=== PATIENT | female | born 1940 ===

== ENCOUNTER 2018-06-16 11:14 | Inpatient (IN) | payer MEDICARE ==
[2018-06-16] MEDS ORDERED: METHYLPREDNISOLONE PF 125MG/VIAL IVP ONE (12:00)
[2018-06-16] MEDS ORDERED: IPRATROPIUM/ALBUTEROL (0.5MG/3MG) NEB INH ONE (12:03)
[2018-06-16 12:23] LABS: BASO % 0.2 % (0-6); EOS % 0.3 % (0-6); GRAN % 79.4 % (47-80); HEMATOCRIT 38.8 % (35.0-47.0); HEMOGLOBIN 12.4 gm/dl (11.6-16.0); LYMPH % 9.9 % (16-45); MEAN CELL VOLUME 94.4 fl (81-97); MEAN CORPUSCULAR HEMOGLOBIN 30.2 pg (27-33); MEAN PLATELET VOLUME 11.8 fl (7.4-10.4); MONO % 10.2 % (0-9); PLATELET COUNT 234 K/uL (130-400); RED BLOOD COUNT 4.11 M/uL (3.80-5.40); RED CELL DISTRIBUTION WIDTH 13.3 % (11.5-14.5); WHITE BLOOD COUNT W/O DIFF 11.9 K/uL (4.2-12.2)
[2018-06-16 12:32] LABS: BLOOD UREA NITROGEN 15 mg/dL (8-23); CREATININE 0.9 mg/dL (0.5-0.9); EST GLOMERULAR FILTRATION RATE > 60 mL/min
[2018-06-16 12:35] LABS: GLUCOSE,RANDOM 119 mg/dL (74-109)
--- NOTE | 2018-06-16 12:59 | Emergency Department Record ---
History of Present Illness - General Chief Complaint: Shortness of breath Stated Complaint: ISIAH Time Seen by Provider: 06/16/18 11:37 Source: Patient Mode of Arrival: Wheelchair Limitations: No limitations - History of Present Illness Initial Comments: pt has had bronchitis for the last week and has been getting increasingly sob. she states her oxygen was down to 75% at home. she was on home O2 at 1 time but was able to come off it. MD Complaint: Cough, Shortness of breath Onset/Timin -: Days(s) Consistency: Constant Improves With: Nothing Worsens With: Exertion, Lying flat Known History Of: COPD Context: Recent URI Associated Symptoms: Cough Treatments Prior to Arrival: None - Related Data Home Oxygen Therapy: No Allergies Allergy/AdvReac Type Severity Reaction Status Date / Time Androgenic Anabolic Steroid Allergy MUSCLE PAIN Verified 06/16/18 11:31 Travel Screening - Travel/Exposure Within Last 30 Days Have you traveled within the last 30 days?: No Review of Systems Reviewed: No additional complaints except as noted below Constitutional: Reports: As per HPI. Denies: Chills, Fever, Malaise, Night sweats, Weakness, Weight change Eyes: Reports: As per HPI. Denies: Eye discharge, Eye pain, Photophobia, Vision change ENT: Reports: As per HPI. Denies: Congestion, Dental pain, Ear pain, Epistaxis , Hearing loss, Throat pain Respiratory: Reports: As per HPI, Dyspnea. Denies: Cough, Hemoptysis, Stridor, Wheezes Cardiovascular: Reports: As per HPI. Denies: Arrhythmia, Chest pain, Dyspnea on exertion, Edema, Murmurs, Orthopnea, Palpitations, Paroxysmal nocturnal dyspnea, Rheumatic Fever, Syncope Endocrine: Reports: As per HPI. Denies: Fatigue, Heat or cold intolerance, Polydipsia, Polyuria Gastrointestinal: Reports: As per HPI. Denies: Abdominal pain, Constipation, Diarrhea, Hematemesis, Hematochezia, Melena, Nausea, Vomiting Genitourinary: Reports: As per HPI. Denies: Abnormal menses, Discharge, Dyspareunia, Dysuria, Frequency, Hematuria, Incontinence, Retention, Urgency Musculoskeletal: Reports: As per HPI. Denies: Arthralgia, Back pain, Gout, Joint swelling, Myalgia, Neck pain Skin: Reports: As per HPI. Denies: Bruising, Change in color, Change in hair/ nails, Lesions, Pruritus, Rash Neurological: Reports: As per HPI. Denies: Abnormal gait, Confusion, Headache, Numbness, Paresthesias, Seizure, Tingling, Tremors, Vertigo, Weakness Psychiatric: Reports: As per HPI. Denies: Anxiety, Auditory hallucinations, Depression, Homicidal thoughts, Suicidal thoughts, Visual hallucinations Hematological/Lymphatic: Reports: As per HPI. Denies: Anemia, Blood Clots, Easy bleeding, Easy bruising, Swollen glands Past Medical History - SOCIAL HISTORY Smoking Status: Former smoker Alcohol Use: None Drug Use: None - RESPIRATORY Hx Respiratory Disorders: Yes Hx COPD: Yes - CARDIOVASCULAR Hx Cardio Disorders: No - NEURO Hx Neuro Disorders: No - GI Hx GI Disorders: No - Hx Genitourinary Disorders: No - ENDOCRINE Hx Endocrine Disorders: No - MUSCULOSKELETAL Hx Musculoskeletal Disorders: No - PSYCH Hx Psych Problems: No - HEMATOLOGY/ONCOLOGY Hx Hematology/Oncology Disorders: No Family Medical History Any Significant Family History?: No Physical Exam - General General Appearance: Alert, Oriented x3, Cooperative, Mild distress - Head Head exam: Normal inspection - Eye Eye exam: Normal appearance, PERRL, EOMI Pupils: Normal accommodation - ENT ENT exam: Normal exam, Mucous membranes moist, Normal external ear exam, Normal orophraynx Ear exam: Normal external inspection. negative: External canal tenderness Nasal Exam: Normal inspection. negative: Discharge, Sinus tenderness Mouth exam: Normal external inspection, Tongue normal Teeth exam: Normal inspection. negative: Dental caries Throat exam: Normal inspection. negative: Tonsillar erythema, Tonsillar exudate - Neck Neck exam: Normal inspection, Full ROM. negative: Tenderness - Respiratory Respiratory exam: Decreased breath sounds, Respiratory distress - Cardiovascular Cardiovascular Exam: Regular rate, Normal rhythm, Normal heart sounds - GI/Abdominal GI/Abdominal exam: Soft, Normal bowel sounds. negative: Tenderness - Rectal Rectal exam: Deferred - exam: Deferred - Extremities Extremities exam: Normal inspection, Full ROM, Normal capillary refill. negative: Tenderness - Back Back exam: Reports: Normal inspection, Full ROM. Denies: Muscle spasm, Rash noted, Tenderness - Neurological Neurological exam: Alert, CN II-XII intact, Normal gait, Oriented X3 - Psychiatric Psychiatric exam: Normal affect, Normal mood - Skin Skin exam: Dry, Intact, Normal color, Warm Course Vital Signs 06/16/18 06/16/18 11:21 12:05 Pulse Rate 95 H 97 H Respiratory 22 20 Rate Blood Pressure 106/78 Pulse Ox 85 L 95 - Reevaluation(s) Reevaluation #1: 06/16/18 14:38 pt informed to get repeat cxr in 3 wks to assess resolution of pneumonia vs mass Medical Decision Making - Lab Data Result diagrams: 06/16/18 11:30 06/16/18 11:30 Lab Results 06/16/18 06/16/18 06/16/18 Range/Units 11:30 11:30 11:30 WBC 11.9 (4.2-12.2) K/uL RBC 4.11 (3.80-5.40) M/uL Hgb 12.4 (11.6-16.0) gm/dl Hct 38.8 (35.0-47.0) % MCV 94.4 (81-97) fl MCH 30.2 (27-33) pg MCHC 32.0 (32-36) g/dl RDW 13.3 (11.5-14.5) % Plt Count 234 (130-400) K/uL MPV 11.8 H (7.4-10.4) fl Gran % 79.4 (47-80) % Lymphocytes % 9.9 L (16-45) % Monocytes % 10.2 H (0-9) % Eosinophils % 0.3 (0-6) % Basophils % 0.2 (0-6) % Absolute Neutrophils Not Reportable Sodium 137 (136-145) mmol/L Potassium 4.1 (3.4-4.5) mmol/L Chloride 96 L (98-107) mmol/L Carbon Dioxide 25.0 (22-29) mmol/L Anion Gap 16.0 (7-16) BUN 15 (8-23) mg/dL Creatinine 0.9 (0.5-0.9) mg/dL Estimated GFR > 60 mL/min Random Glucose 119 H (74-109) mg/dL Calcium 9.5 (8.8-10.2) mg/dL NT-Pro-B Natriuret Pep 338.50 (<450) pg/mL Disposition Disposition: Admit Clinical Impression: Pneumonia Qualifiers: Pneumonia type: due to unspecified organism Laterality: right Lung location: lower lobe of lung Qualified Code(s): J18.1 - Lobar pneumonia, unspecified organism Disposition: Still a Patient at [facility] Decision to Admit: Admit from ER Decision to Admit Date: 06/16/18 Decision to Admit Time: 14:40 Forms: Patient Portal Access Quality - Quality Measures Quality Measures: N/A - Blood Pressure Screening Does Patient Have Any of the Following: No Blood Pressure Classification: Normal BP Reading Systolic Measurement: 106 Diastolic Measurement: 78 Screening for High Blood Pressure: < Normal BP, F/U Not Required > [[id number]]
[2018-06-16 13:20] LABS: INFLUENZA A NEGATIVE (NEGATIVE); INFLUENZA B NEGATIVE (NEGATIVE)
[2018-06-16] MEDS ORDERED: AZITHROMYCIN 500 MG TABLET PO ONE (14:19)
[2018-06-16] MEDS ORDERED: CEFTRIAXONE SODIUM 1 GM in 0.9 % SODIUM CHLORIDE 100ML 100 ML IVPB ONE (14:19)
[2018-06-16] MEDS ORDERED: ALBUTEROL SULFATE (0.083%) 2.5 MG/3 ML NEB INH PRN (16:13)
[2018-06-16] MEDS: IPRATROPIUM/ALBUTEROL (0.5MG/3MG) NEB INH PRN ×2 (16:56→21:55)
--- NOTE | 2018-06-16 17:54 | History & Physical ---
History of Present Illness - Date of Service Date of Service for History & Physical: 06/16/18 - History of Present Illness Admitting Diagnosis: pneumonia History of Present Illness: PMHx: COPD, HLD C/O SOB x 5 days with non productive cough. Today she checked her pulse ox at home and it was at 76% on RA. She states that she usually runs @ 94% on RA. She denies using oxygen at home and just uses a rescue inhaler and a "stiletto" inhaler. She states that she was previously on prednisone for her COPD but her "lung doctor" took her off of it because it causes significant muscle issues in her and she cannot tolerate it. She states that she recently saw Dr. Shane for sleep issues and he took her off of 1mg clonazepam which she had been on for almost 20 years for anxiety and sleep. She states that he put her on trazodone which kept her up all night. She states that she wants to be put back on her clonazepam. She denies trial of other anxiety medications but states that she cannot take antidepressants becuase " they keep me up at night". She states that the only thing that has worked for her is clonazepam. She states that she is willing to try remeron - she thinks she has not tried it in the past. She tried melatonin several years ago in the past but is unsure of the dose. She states that she had a sleep study in the past which was negative for SULEMA. No other concerns. Vitals: BP 106/58, P 95, RR 22, 85% O2 sat on RA Labs: WNL CXR: per audio recording, opacity noted in the lobe, could represent PNA, malignancy cannot be excluded at this time. Given: azithromycin, rocephin, pt declined steroids. Pt admitted for hypoxemia 2/2 to possible PNA vs. COPD exacerbation. Travel Screening - Travel/Exposure Within Last 30 Days Have you traveled within the last 30 days?: No - Travel/Exposure Within Last Year Have you traveled outside the [place] in the last year?: No - Additonal Travel Details Have you been exposed to anyone with a communicable illness?: No - Travel Symptoms Symptom Screening: None Review of Systems Constitutional: Reports: As per HPI. Denies: Chills, Fever, Malaise, Night sweats, Weakness, Weight change Eyes: Reports: As per HPI. Denies: Eye discharge, Eye pain, Photophobia, Vision change ENT: Reports: As per HPI. Denies: Congestion, Dental pain, Ear pain, Epistaxis , Hearing loss, Throat pain Respiratory: Reports: As per HPI, Cough, Dyspnea, Wheezes. Denies: Hemoptysis, Stridor Cardiovascular: Reports: As per HPI. Denies: Arrhythmia, Chest pain, Dyspnea on exertion, Edema, Murmurs, Orthopnea, Palpitations, Paroxysmal nocturnal dyspnea, Rheumatic Fever, Syncope Endocrine: Reports: As per HPI. Denies: Fatigue, Heat or cold intolerance, Polydipsia, Polyuria Gastrointestinal: Reports: As per HPI. Denies: Abdominal pain, Constipation, Diarrhea, Hematemesis, Hematochezia, Melena, Nausea, Vomiting Genitourinary: Reports: As per HPI. Denies: Abnormal menses, Discharge, Dyspareunia, Dysuria, Frequency, Hematuria, Incontinence, Retention, Urgency Musculoskeletal: Reports: As per HPI. Denies: Arthralgia, Back pain, Gout, Joint swelling, Myalgia, Neck pain Skin: Reports: As per HPI. Denies: Bruising, Change in color, Change in hair/ nails, Lesions, Pruritus, Rash Neurological: Reports: As per HPI. Denies: Abnormal gait, Confusion, Headache, Numbness, Paresthesias, Seizure, Tingling, Tremors, Vertigo, Weakness Psychiatric: Reports: As per HPI. Denies: Anxiety, Auditory hallucinations, Depression, Homicidal thoughts, Suicidal thoughts, Visual hallucinations Hematological/Lymphatic: Reports: As per HPI. Denies: Anemia, Blood Clots, Easy bleeding, Easy bruising, Swollen glands Past Medical History - SOCIAL HISTORY Smoking Status: Former smoker - RESPIRATORY Hx Respiratory Disorders: Yes Hx COPD: Yes - CARDIOVASCULAR Hx Cardio Disorders: No - NEURO Hx Neuro Disorders: No - GI Hx GI Disorders: No - Hx Genitourinary Disorders: No - ENDOCRINE Hx Endocrine Disorders: No - MUSCULOSKELETAL Hx Musculoskeletal Disorders: No - PSYCH Hx Psych Problems: Yes Hx Anxiety: Yes - HEMATOLOGY/ONCOLOGY Hx Hematology/Oncology Disorders: No Family Medical History Any Significant Family History?: No H&P Meds/Allergies - Allergies Allergies: Allergies Allergy/AdvReac Type Severity Reaction Status Date / Time Androgenic Anabolic Steroid Allergy MUSCLE PAIN Verified 06/16/18 11:31 - Active Medications Active Medications: Current Medications Acetaminophen (Tylenol 500mg Tab) 1,000 mg PO Q6H PRN PRN Reason: PAIN - MILD(1-4)/FEVER Albuterol Sulfate () 2.5 mg INH RESP.Q2H PRN PRN Reason: DIFFICULTY IN BREATHING Albuterol/Ipratropium (Duoneb) 3 ml INH RESP.Q6H PRN PRN Reason: WHEEZING Last Admin: 06/16/18 16:56 Dose: 3 ml Azithromycin (Zithromax) 500 mg PO DAILY [facility] Diphenhydramine HCl (Benadryl Capsule) 50 mg PO QHS PRN PRN Reason: INSOMNIA Enoxaparin Sodium (Lovenox) 40 mg SQ DAILY [facility] CEFTRIAXONE 1GM/50ML BAG (Ceftriaxone 1 Gm-D5w Bag) 1 gm in 50 mls @ 100 mls/ hr IVPB Q24H [facility] Potassium Chloride/Sodium Chloride ( Potassium Chl 20meq/) 20 meq in 1,000 mls @ 125 mls/hr IV Q8H [facility] Melatonin (Melatonin) 10 mg PO QHS [facility] Mirtazapine (Remeron) 15 mg PO QHS [facility] Simvastatin (Zocor) 20 mg PO QHS [facility] Physical Exam - Vital Signs Vital Signs: Vital Signs - Last 24 Hrs Temp Pulse Pulse Resp BP BP Pulse Ox 06/16/18 16:56 86 18 96 06/16/18 16:28 20 06/16/18 16:13 98.0 F 79 16 111/71 94 L 06/16/18 15:34 86 24 100/69 95 06/16/18 14:06 90 16 100/80 95 06/16/18 12:05 97 H 20 95 06/16/18 11:21 95 H 22 106/78 85 L - General General Appearance: Alert, Oriented x3, Cooperative, No acute distress Limitations: No limitations - Head Head exam: Normal inspection - Eye Eye exam: Normal appearance, PERRL Pupils: Normal accommodation - ENT ENT exam: Normal exam, Mucous membranes moist, Normal external ear exam, Normal orophraynx Ear exam: Normal external inspection. negative: External canal tenderness Nasal Exam: Normal inspection. negative: Discharge, Sinus tenderness Mouth exam: Normal external inspection, Tongue normal Teeth exam: Normal inspection. negative: Dental caries Throat exam: Normal inspection. negative: Tonsillar erythema, Tonsillar exudate - Neck Neck exam: Normal inspection, Full ROM. negative: Tenderness - Respiratory Respiratory exam: Decreased breath sounds, Wheezes (bilateral bases) - Cardiovascular Cardiovascular Exam: Regular rate, Normal rhythm, Normal heart sounds - GI/Abdominal GI/Abdominal exam: Soft, Normal bowel sounds. negative: Tenderness - Rectal Rectal exam: Deferred - exam: Deferred - Extremities Extremities exam: Normal inspection, Full ROM, Normal capillary refill. negative: Tenderness - Neurological Neurological exam: Alert, Oriented X3 - Psychiatric Psychiatric exam: Normal affect, Normal mood - Skin Skin exam: Dry, Intact, Normal color, Warm Results - Labs Result Diagrams: 06/16/18 11:30 06/16/18 11:30 Labs Last 24 Hours: Laboratory Results - last 24 hr 06/16/18 06/16/18 06/16/18 11:30 11:30 11:30 WBC 11.9 RBC 4.11 Hgb 12.4 Hct 38.8 MCV 94.4 MCH 30.2 MCHC 32.0 RDW 13.3 Plt Count 234 MPV 11.8 H Gran % 79.4 Lymphocytes % 9.9 L Monocytes % 10.2 H Eosinophils % 0.3 Basophils % 0.2 Absolute Neutrophils Not Reportable Sodium 137 Potassium 4.1 Chloride 96 L Carbon Dioxide 25.0 Anion Gap 16.0 BUN 15 Creatinine 0.9 Estimated GFR > 60 Random Glucose 119 H Calcium 9.5 NT-Pro-B Natriuret Pep 338.50 Influenza Type A Ag Influenza Type B Ag 06/16/18 13:00 WBC RBC Hgb Hct MCV MCH MCHC RDW Plt Count MPV Gran % Lymphocytes % Monocytes % Eosinophils % Basophils % Absolute Neutrophils Sodium Potassium Chloride Carbon Dioxide Anion Gap BUN Creatinine Estimated GFR Random Glucose Calcium NT-Pro-B Natriuret Pep Influenza Type A Ag Negative Influenza Type B Ag Negative VTE H&P Assessment - Risk for VTE Risk for VTE: Yes Risk Level: High Risk Assessment Date: 06/16/18 (Caprini risk 5, high risk) Risk Assessment Time: 18:03 VTE Orders Placed or Will Be Placed: Yes Plan - Inpatient Certification Inpatient Certification: Admit to inpatient care: Based on my medical assessment, after consideration of patient's risk factors (age, co-morbidities and patient presenting symptoms and acuity), I expect that this patient will remain in the hospital greater than or equal to two midnights and that the services needed warrant inpatient care because: Patient Risk Factors: [age, h/x of COPD (comorbidities), possible fast decline.] Estimated length of stay: [3 days] The patient may reasonably be expected to be discharged or transferred to a hospital within 96 hours after admission to [facility]. Services needed: [IV meds and fluids, O2] Post hospital care (if known): [possible O2 need] I certify that my determination is in accordance with my understanding of Medicare requirements for reasonable and necessary inpatient services. 06/16/18 18:11 - Detailed Diagnosis and Plan (1) Pneumonia Current Visit: Yes Status: Acute Qualifiers: Pneumonia type: due to unspecified organism Laterality: right Lung location: lower lobe of lung Qualified Code(s): J18.1 - Lobar pneumonia, unspecified organism Base Code: J18.9 - PNEUMONIA, UNSPECIFIED ORGANISM Priority: High Comment: - CXR shows possible infiltrate, will need rpt XR 3 weeks outpt for clearing to rule out malignancy. - Rpt CXR tomorrow to see any progression. - Rocephin and azithro prescribed for coverage of CAP. - No steroids given reaction pt has had in the past. - Maintenance IV fluids 125/hr. - Oxygen as needed. - duoneb and albuterol PRN per resp - Home inhaler as prescribed. (2) Insomnia Current Visit: Yes Status: Chronic Qualifiers: Insomnia type: psychophysiologic Qualified Code(s): F51.04 - Psychophysiologic insomnia Base Code: G47.00 - INSOMNIA, UNSPECIFIED Priority: Medium Comment: - Will try 15mg remeron tonight at 8 PM with 10mg melatonin. - If still not sleeping in 2 hours benadryl 50mg prescribed PRN sleep. - Refraining from benzo's for sleep. Counseled pt regarding this and risks of use. (3) HLD (hyperlipidemia) Current Visit: Yes Status: Acute Base Code: E78.5 - HYPERLIPIDEMIA, UNSPECIFIED Priority: Low Comment: - Continue home meds as prescribed. (4) DVT prophylaxis Current Visit: Yes Status: Acute Base Code: [id number] - Priority: High Comment: - High risk with caprini score. - 40mg subQ daily. GFR wnl as well as Cr. - Disposition Home pending improvement
[2018-06-16] MEDS: POTASSIUM CHL 20MEQ IN 1L NS 20 MEQ/1,000 ML BAG IV SCH (18:06)
[2018-06-16] MEDS: MIRTAZAPINE 15 MG TABLET PO SCH ×2 (20:44→22:17)
[2018-06-16] MEDS: MELATONIN 5 MG TABLET PO SCH ×2 (20:44→22:17)
[2018-06-16] MEDS ORDERED: DIPHENHYDRAMINE HCL 25 MG CAPSULE PO PRN (22:00)
[2018-06-16] MEDS: BENZONATATE 100 MG CAPSULE PO PRN (22:15)
[2018-06-16] MEDS: SIMVASTATIN 20 MG TABLET PO SCH (22:17)
[2018-06-17] MEDS: ACETAMINOPHEN 500 MG TABLET PO PRN ×2 (01:54→14:02)
[2018-06-17] MEDS: POTASSIUM CHL 20MEQ IN 1L NS 20 MEQ/1,000 ML BAG IV SCH ×2 (01:58→09:47)
[2018-06-17 07:10] LABS: BASO % 0.2 % (0-6); EOS % 0.7 % (0-6); GRAN % 76.4 % (47-80); HEMATOCRIT 33.8 % (35.0-47.0); HEMOGLOBIN 10.5 gm/dl (11.6-16.0); LYMPH % 12.8 % (16-45); MEAN CELL VOLUME 96.3 fl (81-97); MEAN CORPUSCULAR HEMOGLOBIN 29.9 pg (27-33); MEAN CORPUSCULAR HGB CONC 31.1 g/dl (32-36); MEAN PLATELET VOLUME 11.6 fl (7.4-10.4); MONO % 9.9 % (0-9); PLATELET COUNT 223 K/uL (130-400); RED BLOOD COUNT 3.51 M/uL (3.80-5.40); RED CELL DISTRIBUTION WIDTH 13.6 % (11.5-14.5); WHITE BLOOD COUNT W/O DIFF 10.3 K/uL (4.2-12.2)
[2018-06-17 07:33] LABS: BLOOD UREA NITROGEN 14 mg/dL (8-23); CREATININE 0.9 mg/dL (0.5-0.9); EST GLOMERULAR FILTRATION RATE > 60 mL/min; GLUCOSE,RANDOM 116 mg/dL (74-109)
--- NOTE | 2018-06-17 07:59 | RADIOLOGY REPORT ---
EXAM: CHEST, TWO VIEWS HISTORY: DIFFICULTY BREATHING. TECHNIQUE: Frontal and lateral views of the chest were performed. FINDINGS: The heart size is normal. The lungs are hyperinflated. There is a right lower lobe opacity. No pleural effusion. The osseous structures are normal. IMPRESSION: INDETERMINATE RIGHT LOWER LOBE OPACITY. FINDINGS MAY BE RELATED TO PNEUMONIA. UNDERLYING NEOPLASM NOT EXCLUDED. JOB NUMBER: [id number] MTDD
[2018-06-17] MEDS: ENOXAPARIN 40 MG/0.4 ML SYR SQ SCH (09:50)
[2018-06-17] MEDS: AZITHROMYCIN 250 MG TABLET PO SCH (09:50)
[2018-06-17] MEDS: BENZONATATE 100 MG CAPSULE PO PRN ×2 (09:51→20:16)
[2018-06-17] MEDS ORDERED: AZITHROMYCIN 500 MG TABLET PO SCH (10:00)
[2018-06-17] MEDS: ANORO (UMECLIDINIUM & VILANTEROL) 62.5MCG/25MCG INH IH SCH (10:20)
[2018-06-17] MEDS: IPRATROPIUM/ALBUTEROL (0.5MG/3MG) NEB INH PRN (10:20)
--- NOTE | 2018-06-17 10:31 | Physician Progress Note ---
Subjective - Date Date of Physician Progress Note: 06/17/18 - Subjective Subjective Comment: Pt states that she thought the remeron, benadryl, melatonin combo helped just as much as the clonazepam. She states that she slept well last night. Feels less SOB this morning. Feels little better than yesterday. Still requiring 2L O2. No other concerns/complaints today. Objective - Vital Signs Vital Signs: Vital Signs - Last 24 Hrs Temp Pulse Pulse Pulse Resp BP BP 06/17/18 08:12 97.8 F 79 16 134/53 06/17/18 07:45 80 16 06/17/18 05:00 98.6 F 73 20 132/55 06/16/18 21:58 81 18 06/16/18 20:00 98.8 F 83 20 113/54 06/16/18 17:00 97.3 F L 88 16 67/52 06/16/18 16:56 86 18 06/16/18 16:28 20 06/16/18 16:13 98.0 F 79 16 111/71 06/16/18 15:34 86 24 100/69 06/16/18 14:06 90 16 100/80 06/16/18 12:05 97 H 20 06/16/18 11:21 95 H 22 106/78 Pulse Ox 06/17/18 08:12 93 L 06/17/18 07:45 06/17/18 05:00 95 06/16/18 21:58 95 06/16/18 20:00 97 06/16/18 17:00 92 L 06/16/18 16:56 96 06/16/18 16:28 06/16/18 16:13 94 L 06/16/18 15:34 95 06/16/18 14:06 95 06/16/18 12:05 95 06/16/18 11:21 85 L - General General Appearance: Alert, Oriented x3, Cooperative, No acute distress Limitations: No limitations - Head Head exam: Normal inspection - Eye Eye exam: Normal appearance, PERRL Pupils: Normal accommodation - ENT ENT exam: Normal exam, Mucous membranes moist, Normal external ear exam Ear exam: Normal external inspection. negative: External canal tenderness Nasal Exam: negative: Discharge, Sinus tenderness - Neck Neck exam: Normal inspection, Full ROM. negative: Tenderness - Respiratory Respiratory exam: Normal lung sounds bilaterally - Cardiovascular Cardiovascular Exam: Regular rate, Normal rhythm, Normal heart sounds - GI/Abdominal GI/Abdominal exam: Soft, Normal bowel sounds. negative: Tenderness - Rectal Rectal exam: Deferred - exam: Deferred - Extremities Extremities exam: Normal inspection, Full ROM, Normal capillary refill. negative: Tenderness - Back Back exam: Reports: Normal inspection, Full ROM. Denies: Muscle spasm, Rash noted, Tenderness - Neurological Neurological exam: Alert, Oriented X3 - Psychiatric Psychiatric exam: Normal affect, Normal mood - Skin Skin exam: Dry, Intact, Normal color, Warm Assessment and Plan - Assessment and Plan (1) Pneumonia Current Visit: Yes Status: Acute Qualifiers: Pneumonia type: due to unspecified organism Laterality: right Lung location: lower lobe of lung Qualified Code(s): J18.1 - Lobar pneumonia, unspecified organism Base Code: J18.9 - PNEUMONIA, UNSPECIFIED ORGANISM Priority: High Comment: - CXR shows possible infiltrate, will need rpt XR 3 weeks outpt for clearing to rule out malignancy. - Rpt CXR pending for today - Rocephin and azithro prescribed for coverage of CAP. - No steroids given reaction pt has had in the past. - Oxygen as needed. - duoneb and albuterol PRN per resp - Home inhaler as prescribed. - nurse noted dark urine this AM, UA ordered with cx if indicated. (2) Insomnia Current Visit: Yes Status: Chronic Qualifiers: Insomnia type: psychophysiologic Qualified Code(s): F51.04 - Psychophysiologic insomnia Base Code: G47.00 - INSOMNIA, UNSPECIFIED Priority: Medium Comment: - Will try 15mg remeron tonight at 8 PM with 10mg melatonin. - If still not sleeping in 2 hours benadryl 50mg prescribed PRN sleep. - Refraining from benzo's for sleep. Counseled pt regarding this and risks of use. (3) HLD (hyperlipidemia) Current Visit: Yes Status: Acute Base Code: E78.5 - HYPERLIPIDEMIA, UNSPECIFIED Priority: Low Comment: - Continue home meds as prescribed. (4) DVT prophylaxis Current Visit: Yes Status: Acute Base Code: [id number] - Priority: High Comment: - High risk with caprini score. - 40mg subQ daily. GFR wnl as well as Cr. - Disposition Disposition: Home pending improvement Results - Labs Result Diagrams: 06/17/18 06:13 06/17/18 06:12 Labs Last 24 Hours: Laboratory Results - last 24 hr 06/16/18 06/16/18 06/16/18 11:30 11:30 11:30 WBC 11.9 RBC 4.11 Hgb 12.4 Hct 38.8 MCV 94.4 MCH 30.2 MCHC 32.0 RDW 13.3 Plt Count 234 MPV 11.8 H Gran % 79.4 Lymphocytes % 9.9 L Monocytes % 10.2 H Eosinophils % 0.3 Basophils % 0.2 Absolute Neutrophils Not Reportable Sodium 137 Potassium 4.1 Chloride 96 L Carbon Dioxide 25.0 Anion Gap 16.0 BUN 15 Creatinine 0.9 Estimated GFR > 60 Random Glucose 119 H Calcium 9.5 NT-Pro-B Natriuret Pep 338.50 Influenza Type A Ag Influenza Type B Ag 06/16/18 06/17/18 06/17/18 13:00 06:12 06:13 WBC 10.3 RBC 3.51 L Hgb 10.5 L Hct 33.8 L MCV 96.3 MCH 29.9 MCHC 31.1 L RDW 13.6 Plt Count 223 MPV 11.6 H Gran % 76.4 Lymphocytes % 12.8 L Monocytes % 9.9 H Eosinophils % 0.7 Basophils % 0.2 Absolute Neutrophils Sodium 142 Potassium 4.5 Chloride 106 Carbon Dioxide 26.0 Anion Gap 10.0 BUN 14 Creatinine 0.9 Estimated GFR > 60 Random Glucose 116 H Calcium 8.8 NT-Pro-B Natriuret Pep Influenza Type A Ag Negative Influenza Type B Ag Negative DVT/PE Assessment - Risk for VTE Risk for VTE: No Risk Level: High Risk Assessment Date: 06/16/18 (Caprini risk 5, high risk) Risk Assessment Time: 18:03 VTE Orders Placed or Will Be Placed: Yes - Active Medicaitons Current Medications: Current Medications Acetaminophen (Tylenol 500mg Tab) 1,000 mg PO Q6H PRN PRN Reason: PAIN - MILD(1-4)/FEVER Last Admin: 06/17/18 01:54 Dose: 1,000 mg Albuterol Sulfate () 2.5 mg INH RESP.Q2H PRN PRN Reason: DIFFICULTY IN BREATHING Albuterol/Ipratropium (Duoneb) 3 ml INH RESP.Q6H PRN PRN Reason: WHEEZING Last Admin: 06/17/18 10:20 Dose: 3 ml Azithromycin (Zithromax) 250 mg PO DAILY [facility] Last Admin: 06/17/18 09:50 Dose: 250 mg Benzonatate (Tessalon) 200 mg PO TID PRN PRN Reason: COUGH Last Admin: 06/17/18 09:51 Dose: 200 mg Diphenhydramine HCl (Benadryl Capsule) 50 mg PO QHS PRN PRN Reason: INSOMNIA Last Admin: 06/16/18 22:16 Dose: 50 mg Enoxaparin Sodium (Lovenox) 40 mg SQ DAILY [facility] Last Admin: 06/17/18 09:50 Dose: 40 mg CEFTRIAXONE 1GM/50ML BAG (Ceftriaxone 1 Gm-D5w Bag) 1 gm in 50 mls @ 100 mls/ hr IVPB Q24H [facility] Melatonin (Melatonin) 10 mg PO QHS [facility] Last Admin: 06/16/18 22:17 Dose: Not Given Mirtazapine (Remeron) 15 mg PO QHS [facility] Last Admin: 06/16/18 22:17 Dose: Not Given Simvastatin (Zocor) 20 mg PO QHS [facility] Last Admin: 06/16/18 22:17 Dose: 20 mg AMI Plan - Labs Result Diagrams: 06/17/18 06:13 06/17/18 06:12
[2018-06-17] MEDS ORDERED: DIPHENHYDRAMINE HCL 25 MG CAPSULE PO PRN (10:52)
[2018-06-17] MEDS: CEFTRIAXONE 1GM/50ML BAG 1 GM/50 ML BAG IVPB SCH (13:58)
[2018-06-17] MEDS ORDERED: MELATONIN 5 MG TABLET PO SCH (20:00)
[2018-06-17] MEDS ORDERED: MIRTAZAPINE 15 MG TABLET PO SCH ×2 (20:00→22:00)
[2018-06-17] MEDS: SIMVASTATIN 20 MG TABLET PO SCH (21:24)
[2018-06-18] MEDS: ACETAMINOPHEN 500 MG TABLET PO PRN (00:15)
[2018-06-18 06:51] LABS: BASO % 0.3 % (0-6); EOS % 2.1 % (0-6); GRAN % 75.5 % (47-80); HEMATOCRIT 34.6 % (35.0-47.0); HEMOGLOBIN 10.7 gm/dl (11.6-16.0); LYMPH % 12.8 % (16-45); MEAN CELL VOLUME 96.6 fl (81-97); MEAN CORPUSCULAR HGB CONC 30.9 g/dl (32-36); MEAN PLATELET VOLUME 11.2 fl (7.4-10.4); MONO % 9.3 % (0-9); PLATELET COUNT 244 K/uL (130-400); RED BLOOD COUNT 3.58 M/uL (3.80-5.40); RED CELL DISTRIBUTION WIDTH 13.7 % (11.5-14.5); WHITE BLOOD COUNT W/O DIFF 10.9 K/uL (4.2-12.2)
[2018-06-18 06:52] LABS: MEAN CORPUSCULAR HEMOGLOBIN 29.8 pg (27-33)
[2018-06-18 07:11] LABS: BLOOD UREA NITROGEN 11 mg/dL (8-23); CREATININE 0.8 mg/dL (0.5-0.9); EST GLOMERULAR FILTRATION RATE > 60 mL/min; GLUCOSE,RANDOM 108 mg/dL (74-109)
--- NOTE | 2018-06-18 07:20 | RADIOLOGY REPORT ---
EXAM: CHEST, TWO VIEWS HISTORY: COUGH AND SHORTNESS OF BREATH FOR THREE DAYS. TECHNIQUE: Two views of the chest were obtained. Comparison: Chest radiograph 06/16/18. FINDINGS: The cardiac silhouette is within normal size limits. Thoracic aortic calcifications are noted. Patchy consolidation in the region of the right lower lobe, overall similar from prior study. No new focal pulmonary opacities. No definable pleural fluid collection or visible pneumothorax. The lungs appear hyperinflated. Incidental note of right proximal humerus deformity status post internal fixation, partially seen. IMPRESSION: 1. PERSISTENT RIGHT LOWER LOBE CONSOLIDATION, SUSPICIOUS FOR PNEUMONIA. RECOMMEND CONTINUED RADIOGRAPHIC FOLLOW-UP UNTIL RESOLUTION. 2. THE LUNGS APPEAR HYPERINFLATED WHICH MAY BE SEEN IN COPD. JOB NUMBER: [id number] MTDD
[2018-06-18 07:50] LABS: URINE APPEARANCE CLEAR; URINE BILIRUBIN NEGATIVE (NEGATIVE); URINE BLOOD NEGATIVE (NEGATIVE); URINE COLOR YELLOW; URINE GLUCOSE (UA) NEGATIVE (NEGATIVE); URINE KETONE TRACE (NEGATIVE); URINE LEUKOCYTE ESTERASE NEGATIVE (NEGATIVE); URINE NITRITE NEGATIVE (NEGATIVE); URINE PROTEIN NEGATIVE (NEGATIVE)
[2018-06-18] MEDS ORDERED: 0.9 % SODIUM CHLORIDE 1000ML 1,000 ML IV ONE (07:55)
[2018-06-18] MEDS: ANORO (UMECLIDINIUM & VILANTEROL) 62.5MCG/25MCG INH IH SCH (09:32)
--- NOTE | 2018-06-18 10:26 | Discharge Summary ---
Providers Discharge Summary Date: 06/18/18 Date of admission: 06/16/18 15:30 Expected Date of Discharge: 06/18/18 Attending physician: JESSICA SHANE Primary care physician: DEBBIE ARREAGA M.D. Physical Exam - Vital Signs Vital Signs: Vital Signs - Last 24 Hrs Temp Pulse Pulse Pulse Resp BP BP 06/18/18 09:43 90 24 06/18/18 09:20 92 H 24 06/18/18 09:00 90 22 06/18/18 08:06 98/78 06/18/18 07:41 97.5 F L 90 22 87/60 06/18/18 05:37 70 16 06/17/18 21:29 98.1 F 81 20 126/63 06/17/18 18:05 97.5 F L 81 16 104/55 06/17/18 15:14 98.0 F 88 20 132/60 06/17/18 14:00 06/17/18 10:20 79 16 Pulse Ox 06/18/18 09:43 94 L 06/18/18 09:20 94 L 06/18/18 09:00 06/18/18 08:06 06/18/18 07:41 92 L 06/18/18 05:37 96 06/17/18 21:29 93 L 06/17/18 18:05 94 L 06/17/18 15:14 93 L 06/17/18 14:00 94 L 06/17/18 10:20 96 - General General Appearance: Alert, Oriented x3, Cooperative, No acute distress Limitations: No limitations - Head Head exam: Normal inspection - Eye Eye exam: Normal appearance, PERRL Pupils: Normal accommodation - ENT ENT exam: Normal exam, Mucous membranes moist, Normal external ear exam Ear exam: Normal external inspection. negative: External canal tenderness Nasal Exam: negative: Discharge, Sinus tenderness Mouth exam: Normal external inspection, Tongue normal Teeth exam: Normal inspection. negative: Dental caries Throat exam: Normal inspection. negative: Tonsillar erythema, Tonsillar exudate - Neck Neck exam: Normal inspection, Full ROM. negative: Tenderness - Respiratory Respiratory exam: Normal lung sounds bilaterally - Cardiovascular Cardiovascular Exam: Regular rate, Normal rhythm, Normal heart sounds - GI/Abdominal GI/Abdominal exam: Soft, Normal bowel sounds. negative: Tenderness - Rectal Rectal exam: Deferred - exam: Deferred - Extremities Extremities exam: Normal inspection, Full ROM, Normal capillary refill. negative: Tenderness - Back Back exam: Reports: Normal inspection, Full ROM. Denies: Muscle spasm, Rash noted, Tenderness - Neurological Neurological exam: Alert, Oriented X3 - Psychiatric Psychiatric exam: Normal affect, Normal mood - Skin Skin exam: Dry, Intact, Normal color, Warm Hospitalization - Hospitalization Admission Diagnosis: pneumonia - Problem List/Discharge Diagnosis (1) Pneumonia Current Visit: Yes Status: Acute Discharge Diagnosis: Pneumonia type: due to unspecified organism Laterality: right Lung location: lower lobe of lung Qualified Code(s): J18.1 - Lobar pneumonia, unspecified organism Base Code: J18.9 - PNEUMONIA, UNSPECIFIED ORGANISM Comment: - doing well, will D/C home today with O2. - Will continue azithromycin and cefdinir outpt. - Bolus given to help hydrate given ketones in urine and dry mouth. - Otherwise pt states that she feels 90% better. - Will rpt CXR in 3 weeks to monitor for clearing and rule out malignancy. (2) Insomnia Current Visit: Yes Status: Chronic Discharge Diagnosis: Insomnia type: psychophysiologic Qualified Code(s): F51.04 - Psychophysiologic insomnia Base Code: G47.00 - INSOMNIA, UNSPECIFIED Comment: - Pt liked the 15mg remeron with 10mg melatonin and 50mg benadryl combo for sleep. - Will prescribe outpt. (3) HLD (hyperlipidemia) Current Visit: Yes Status: Acute Base Code: E78.5 - HYPERLIPIDEMIA, UNSPECIFIED Comment: - Continue home meds as prescribed. (4) DVT prophylaxis Current Visit: Yes Status: Acute Base Code: [id number] - Comment: - High risk with caprini score. - 40mg subQ daily. GFR wnl as well as Cr. - Disposition Home today - Hospitalization Course Hospital Course: PMHx: COPD, HLD ED course: C/O SOB x 5 days with non productive cough. Today she checked her pulse ox at home and it was at 76% on RA. She states that she usually runs @ 94% on RA. She denies using oxygen at home and just uses a rescue inhaler and a "stiletto" inhaler. She states that she was previously on prednisone for her COPD but her "lung doctor" took her off of it because it causes significant muscle issues in her and she cannot tolerate it. She states that she recently saw Dr. Shane for sleep issues and he took her off of 1mg clonazepam which she had been on for almost 20 years for anxiety and sleep. She states that he put her on trazodone which kept her up all night. She states that she wants to be put back on her clonazepam. She denies trial of other anxiety medications but states that she cannot take antidepressants becuase " they keep me up at night". She states that the only thing that has worked for her is clonazepam. She states that she is willing to try remeron - she thinks she has not tried it in the past. She tried melatonin several years ago in the past but is unsure of the dose. She states that she had a sleep study in the past which was negative for SULEMA. No other concerns. Vitals: BP 106/58, P 95, RR 22, 85% O2 sat on RA Labs: WNL CXR: per audio recording, opacity noted in the lobe, could represent PNA, malignancy cannot be excluded at this time. Given: azithromycin, rocephin, pt declined steroids. Pt admitted for hypoxemia 2/2 to possible PNA vs. COPD exacerbation. Hospital course: over two days the pt's symptoms of SOB and wheezing significantly improved with O2 and 2L NC, rocephin and azithromycin daily, and breathing treatments. She feels roughly 90% better today. For sleep remeron 15mg, melatonin 10mg, and benadryl 50mg worked well for her and she did not have any side effects. She will need home oxygen and will need to increase oxygen when ambulating to prevent desaturations. WBC continued to stay in normal range. F/u with me in 2 weeks scheduled. Procedures: Imaging and X-Rays 06/16/18 11:59 CXR [CHEST 2 VIEWS] [RAD] Stat 06/17/18 08:00 CXR [CHEST 2 VIEWS] [RAD] Stat Cardiology Procedures 06/16/18 12:03 EKG NOW Abnormal Labs: Abnormal Lab Results 06/16/18 06/16/18 06/17/18 Range/Units 11:30 11:30 06:12 RBC (3.80-5.40) M/uL Hgb (11.6-16.0) gm/dl Hct (35.0-47.0) % MCHC (32-36) g/dl MPV 11.8 H (7.4-10.4) fl Lymphocytes % 9.9 L (16-45) % Monocytes % 10.2 H (0-9) % Chloride 96 L (98-107) mmol/L Random Glucose 119 H 116 H (74-109) mg/dL Urine Ketones (NEGATIVE) 06/17/18 06/17/18 06/18/18 Range/Units 06:13 07:30 06:14 RBC 3.51 L 3.58 L (3.80-5.40) M/uL Hgb 10.5 L 10.7 L (11.6-16.0) gm/dl Hct 33.8 L 34.6 L (35.0-47.0) % MCHC 31.1 L 30.9 L (32-36) g/dl MPV 11.6 H 11.2 H (7.4-10.4) fl Lymphocytes % 12.8 L 12.8 L (16-45) % Monocytes % 9.9 H 9.3 H (0-9) % Chloride (98-107) mmol/L Random Glucose (74-109) mg/dL Urine Ketones Trace H (NEGATIVE) Condition at Discharge: (2) Stable VTE Discharge VTE Reason For No Overlap Therapy: Not Indicated Discharge Medications - Discharge Medications Prescriptions: Diphenhydramine HCl [Sleep Aid] 50 mg PO QHS #60 capsule Melatonin 10 mg PO QHS #60 tablet Mirtazapine [Remeron] 7.5 mg PO QHS #30 tablet Azithromycin [Zithromax] 250 mg PO DAILY #3 tab Benzonatate [Tessalon] 2 cap PO Q8H PRN #60 cap PRN Reason: Cough Cefdinir [Omnicef] 300 mg PO BID 7 Days #14 cap Home Medications: Ambulatory Orders Calcium Carbonate/Vitamin D3 [Calcium 600-Vit D3 200 Tablet] 1 each PO DAILY 90 Days #90 tab 05/28/18 [Last Taken Unknown] Multivitamin [One Daily Multivitamin] 1 each PO DAILY tab 05/28/18 [Last Taken Unknown] Azithromycin [Zithromax] 250 mg PO DAILY #3 tab 06/18/18 [Last Taken Unknown] Benzonatate [Tessalon] 2 cap PO Q8H PRN #60 cap 06/18/18 [Last Taken Unknown] Cefdinir [Omnicef] 300 mg PO BID 7 Days #14 cap 06/18/18 [Last Taken Unknown] Diphenhydramine HCl [Sleep Aid] 50 mg PO QHS #60 capsule 06/18/18 [Last Taken Unknown] Melatonin 10 mg PO QHS #60 tablet 06/18/18 [Last Taken Unknown] Mirtazapine [Remeron] 7.5 mg PO QHS #30 tablet 06/18/18 [Last Taken Unknown] Discharge Plan - Discharge Instructions Activity at Discharge: Increase Activity as Tolerated Diet at Discharge: Regular Diet Additional Instructions: Start with 1/2 a tablet of the remeron to see if that works better, also take melatonin (10 mg), and the benadryl (50mg) at the same time for sleep. If you feel that the remeron didn't work as well as in the hospital, increase to 1 tab tomorrow with the benadryl (50mg) and melatonin (10mg) for sleep. Take azithromycin once daily until they are finished. Take cefdinir (omnicef) every 12 hours until they are finished. Take benzonatate (tessalon perles) as needed every [address] Arreaga's office with any questions or issues. Wear oxygen at all times until you see Dr. Arreaga for follow up. Continue to use your inhalers as prescribed. If feeling SOB use albuterol as needed. Quality Measures - Quality Measures Quality Measures: Advance Directives, Documentation of Current Medications in Medical Record, Elder Maltreatment Screen and Follow-Up Plan, Screening for High Blood Pressure and F/U Documented - Current Medications Quality Measure: Measure #130: Documentation of Current Medications Documentation of Current Medications: <Current Medications Documented/Reviewed> [G3421] - Blood Pressure Screening Quality Measure: Screening for High Blood Pressure and Follow-Up Documented Does Patient Have Any of the Following: No Blood Pressure Classification: Normal BP Reading Systolic Measurement: 100 Diastolic Measurement: 69 Screening for High Blood Pressure: < Normal BP, F/U Not Required > [G9992] - Advance Directives Quality Measure: Measure #47: Care Plan Advance Directives Established: No Advance Directives Information Provided To Patient: Declined Advance Directives on File: No Advance Care Planning: <Care Plan/Decision Maker Documented; Discussed & Documented> [8643F] - Elder Abuse Suspicion Index Screening: Elder Abuse Suspicion Index Screening Rely on people for bathing, dressing, shopping, banking, etc: No Prevented from getting food, clothes, medication, etc: No Made to feel shamed or threatened by someone: No Forced to sign papers or use money against will: No Feel afraid, touched in ways not wanted or hurt physically: No Poor eye contact, withdrawn, malnourished, cuts or bruises: No Screening Result: Negative result EASI Reference Information: Kami CABRERA, Laurel C, Tana Ortega, Anaid Sommers.Development and validation of a tool to assist physicians identification of elder abuse: The Elder Abuse Suspicion Index (EASI ). Journal of Elder Abuse and Neglect, 2008; 20 (3): 276-300. - Elder Maltreatment Screen Quality Measures: Elder Maltreatment Screen and Follow-Up Plan Elder Maltreatment Screen: <Negative, No Follow-Up Plan Required> [G5963]
[2018-06-18] MEDS: AZITHROMYCIN 250 MG TABLET PO SCH (10:42)
[2018-06-18] MEDS: ENOXAPARIN 40 MG/0.4 ML SYR SQ SCH (10:42)
[2018-06-18] MEDS: BENZONATATE 100 MG CAPSULE PO PRN (10:45)
[2018-06-18] MEDS: CEFTRIAXONE 1GM/50ML BAG 1 GM/50 ML BAG IVPB SCH (14:32)
== END 2018-06-18 16:45 | disposition home or self-care (01) | DRG 195 ==
LOC: ER 11:14 → MEDSURG 15:30
PROVIDERS: ADMIT Internal Medicine; ATTEND Internal Medicine
DX: J18.1 Lobar pneumonia, unspecified organism (principal); F51.04 Psychophysiologic insomnia; E78.5 Hyperlipidemia, unspecified; J44.9 Chronic obstructive pulmonary disease, unspecified; R05 Cough; Z87.891 Personal history of nicotine dependence
CPT/HCPCS: 71046; 80048; 81003; 83880; 85025; 87400; 93005; 93010; 94618; 94640; 94760; 94761; 96365; 96375; 99223; 99233; 99239; 99285; J0696; J1650; J7030; J7613